=== PATIENT | male | born 1995 | race Caucasian/White ===

== ENCOUNTER 2017-04-02 05:36 | Emergency (ER) | payer SELFPAY ==
[~2017-04-02 05:36] MED LIST: DIAZ5TAB PO; PRED20TA PO
[2017-04-02 05:47] VITALS: BP 113/64
[2017-04-02] MEDS ORDERED: PENICILLIN V K 250 MG TABLET. ONE (05:56)
[2017-04-02] MEDS ORDERED: oxyCODONE/APAP 5/325 1 TAB TABLET ONE (05:56)
[2017-04-02] MEDS ORDERED: oxyCODONE/APAP 5/325 1 TAB TABLET PO ONE (06:00)
[2017-04-02] MEDS ORDERED: PENICILLIN V K 250 MG TABLET. PO ONE (06:00)
[2017-04-02] MEDS ORDERED: PENI500T PO (06:04)
[2017-04-02] MEDS ORDERED: BENZ9GEL MM (06:04)
--- NOTE | 2017-04-02 06:17 | ED.ADGEN ---
Past History Past Medical History: Asthma Past Surgical History: No Surgical History Alcohol Use: None Drug Use: None Adult General HPI HPI Patient is a 22-year-old man, history of asthma, methamphetamine abuse, states he has been clean for a year, who presents to the emergency department with a complaint of dental pain, located in his left upper jaw. Patient states he's been having pain on and off for about a year and a half. He states that he noted increased pain over the day or so and swelling in his upper jaw this morning. Patient denies any fevers, any chills, any nausea or vomiting, any eye pain, any ear pain, any difficulty with swallowing or breathing, any spread of the pain from his upper jaw and other portions of his mouth. No drainage or discharge. Patient's tetanus is up-to-date. He states he's been using ibuprofen at home without relief, states he's taken 5 200 mg ibuprofen tablets over the past 12 hours. No other ingestions. Patient does smoke cigarettes daily. Denies any drugs or alcohol. No injuries. No recent travel or surgery. Review of Systems Review of Systems Constitutional: Denies fever or chills [] Eyes: Denies change in visual acuity, redness, or eye pain [] HENT: Denies nasal congestion or sore throat. Pain in the left upper jaw, with left cheek swelling this morning. Respiratory: Denies cough or shortness of breath [] Cardiovascular: No additional information not addressed in HPI [] GI: Denies abdominal pain, nausea, vomiting, bloody stools or diarrhea [] : Denies dysuria or hematuria [] Musculoskeletal: Denies back pain or joint pain [] Integument: Denies rash or skin lesions [] Neurologic: Denies headache, focal weakness or sensory changes [] Endocrine: Denies polyuria or polydipsia [] Current Medications Current Medications Current Medications Medications (Trade) Dose Ordered Sig/Sergey Start Time Stop Time Status Last Admin Dose Admin Oxycodone/ Acetaminophen (Percocet 5/325) 1 tab 1X ONCE 04/02/17 06:00 04/02/17 06:01 UNV 04/02/17 06:00 1 TAB Penicillin V Potassium (Veetid) 500 mg 1X ONCE 04/02/17 06:00 04/02/17 06:01 UNV 04/02/17 06:00 500 MG Allergies Allergies Allergies Coded Allergies Type Severity Reaction Last Updated Verified No Known Drug Allergies 09/08/16 No Physical Exam Physical Exam Constitutional: Well developed, well nourished, no acute distress, non-toxic appearance. [] HENT: Normocephalic, atraumatic, bilateral external ears normal, oropharynx moist, no oral exudates, nose normal. Patient with extremely poor dentition, missing multiple teeth, teeth remain have severe dental caries. Patient with tenderness to palpation over the posterior to the remain in the left upper jaw, there is no palpable abscess, patient is noted to have gingivitis, noted to have some tenderness palpation over the upper jaw region and the soft tissues of the cheek, but there is no palpable fluid collection or mass. No drainable collection identified on examination. Ears are clear bilaterally, no brawny edema, no tongue involvement, oropharynx clear, no trismus. Eyes: PERRLA, EOMI, conjunctiva normal, no discharge. [] Neck: Normal range of motion, no tenderness, supple, no stridor. [] Cardiovascular:Heart rate regular rhythm, no murmur, S1, S2, no rubs or gallops. [] Lungs & Thorax: Bilateral breath sounds clear to auscultation, no wheezing, rhonchi, rales. No chest wall crepitus or tenderness. [] Abdomen: Bowel sounds normal, soft, no tenderness, no masses, no pulsatile masses. [] Skin: Warm, dry, no erythema, no rash. [] Back: No tenderness, no CVA tenderness. [] Extremities: No tenderness, no cyanosis, no clubbing, ROM intact, no edema. [] Neurologic: Alert and oriented X 3, normal motor function, normal sensory function, no focal deficits noted. [] Psychologic: Affect normal, judgement normal, mood normal. [] Current Patient Data Vital Signs Vital Signs Date Time Temp Pulse Resp B/P (MAP) Pulse Ox O2 Delivery O2 Flow Rate FiO2 04/02/17 06:00 20 98 Room Air 04/02/17 05:47 98.1 100 EKG EKG Not indicated. [] Radiology/Procedures Radiology/Procedures Not indicated. [] Course & Med Decision Making Course & Med Decision Making Pertinent Labs and Imaging studies reviewed. (See chart for details) Patient with widespread dental decay, examination is consistent with "meth mouth ", patient admits to history of drug abuse, states his teeth have been in this condition for about a year and a half. He does not currently have insurance or a dental provider, has moved to this area from [place]. There is no evidence of accessible abscess formation, no evidence of cellulitis, or spreading to the surrounding mucosa. Patient's speech is clear, patient without any trismus or other concerning findings on examination. I did discuss at length with patient at bedside the importance of prompt follow-up with a dental provider for tooth extraction, we also discussed concerning symptoms that would prompt return to the emergency department. Patient was given a list of available providers both in the [facility] and [facility] area, for either free dental clinics or sliding scale payment dental clinics. Also discussed the detrimental effect of cigarette smoking on dental care. Patient was given a first dose of Penicillin VK in the ED, which he tolerated without issue, also given a single dose of Percocet in the ED, as his fiance is present to drive. Advised patient to take ibuprofen and acetaminophen as directed on the packaging for discomfort , and also use of Anbesol for dental pain. Patient states understanding and agreement with plan, states that he will be able to follow-up with some of the resources given to him today, and understands concerning symptoms that would prompt return to the ED for additional evaluation. Given prescription for pen VK , Anbesol, clear and detailed instructions and precautions as stated. Patient discharged in stable condition with plan as above. Final Impression Final Impression [] Problems: (1) Pain due to dental caries Dragon Disclaimer Dragon Disclaimer This electronic medical record was generated, in whole or in part, using a voice recognition dictation system. Departure Disposition: 01 HOME, SELF-CARE Condition: IMPROVED Departure: Scripts Benzocaine (ANBESOL) 9 Gm Gel..gram. 9 GM MM QID Y for PAIN, #1 EACH Prov: JUAN MIGUEL COBURN DO 04/02/17 Penicillin V Potassium (PENICILLIN V POTASSIUM) 500 Mg Tablet 1 TAB PO QID, #40 TAB Prov: JUAN MIGUEL COBURN DO 04/02/17 JUAN MIGUEL COBURN DO Apr 02, 2017 06:17
[2017-04-03] MEDS ORDERED: HYDR-965 PO (07:19)
== END 2017-04-02 06:10 | disposition home or self-care (01) ==
LOC: ER 05:36
DX: K02.9 Dental caries, unspecified (principal); J45.909 Unspecified asthma, uncomplicated; F17.210 Nicotine dependence, cigarettes, uncomplicated; F15.10 Other stimulant abuse, uncomplicated
CPT/HCPCS: 99283

== ENCOUNTER 2017-04-03 06:50 | Emergency (ER) | payer SELFPAY ==
[2017-04-03 06:50] VITALS: BP 114/75
[~2017-04-03 06:50] MED LIST changes: +BENZ9GEL MM; +PENI500T PO
[2017-04-03] MEDS ORDERED: HYDR-965 PO (07:19)
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
[2017-04-03] MEDS ORDERED: HYDROcodone/APAP 7.5/325MG 1 TAB TABLET PO ONE (07:35)
[2017-04-03] MEDS ORDERED: PENICILLIN V K 250 MG TABLET. PO ONE (07:45)
== END 2017-04-03 07:42 | disposition home or self-care (01) ==
LOC: ER 06:50
DX: K02.9 Dental caries, unspecified (principal); M25.522 Pain in left elbow; J45.909 Unspecified asthma, uncomplicated
CPT/HCPCS: 99283